=== PATIENT | female | born 1970 | race Two or more races ===

== ENCOUNTER 2018-02-03 12:25 | Outpatient (CLI) | payer OTHER | END 2018-02-03 12:33 | disposition home or self-care (01) | LOC: SONOGRAMA 12:25 | DX: E04.8 Other specified nontoxic goiter (principal) ==

== ENCOUNTER 2022-03-21 09:34 | Outpatient (CLI) | payer OTHER | END 2022-03-21 09:41 | disposition home or self-care (01) | LOC: RAD 09:34 | PROVIDERS: ATTEND Orthopaedic Surgery | DX: M75.121 Complete rotator cuff tear or rupture of right shoulder, not specified as traumatic (principal) ==

== ENCOUNTER 2022-06-17 13:16 | Outpatient (CLI) | payer OTHER | END 2022-06-17 13:21 | disposition home or self-care (01) | LOC: MRI 13:16 | DX: M51.25 Other intervertebral disc displacement, thoracolumbar region (principal); R20.2 Paresthesia of skin; G57.92 Unspecified mononeuropathy of left lower limb | CPT/HCPCS: 72148 ==

== ENCOUNTER 2023-01-17 11:10 | Outpatient (CLI) | payer OTHER | END 2023-01-17 11:29 | disposition home or self-care (01) | LOC: MRI 11:10 | PROVIDERS: ATTEND Physical Medicine & Rehabilitation | DX: S43.431S Superior glenoid labrum lesion of right shoulder, sequela (principal) | CPT/HCPCS: 73221 ==

== ENCOUNTER → 2023-01-21 | Outpatient (CLI) | payer OTHER | END | disposition home or self-care (01) | LOC: NUCLEAR 11:25 | PROVIDERS: ATTEND Family Medicine | DX: R00.2 Palpitations (principal); M81.0 Age-related osteoporosis without current pathological fracture ==

== ENCOUNTER 2023-12-04 11:43 | Outpatient (CLI) | payer OTHER | END 2023-12-04 12:34 | disposition home or self-care (01) | LOC: MRI 11:43 | PROVIDERS: ATTEND Family Medicine | DX: M54.17 Radiculopathy, lumbosacral region (principal) | CPT/HCPCS: 72148 ==